=== PATIENT | male | born 1975 | race Caucasian/White ===

== ENCOUNTER → 2017-06-23 | Day surgery (SDC) | payer OTHER ==
[~2017-06-23] VITALS: Ht 188 cm; Wt 93.4 kg
[~2017-06-23] MED LIST: 0.9% Sodium Chloride 1,000 ML IV SCH; MULT-1007 PO; NAPR250T5 PO; Sodium Chloride LOK Flush 10 mL Syringe IV PRN; TURM500C7 PO; fentaNYL-PF 50 mCg/mL 2 mL Inj IVPUSH PRN
[2017-06-23 09:07] VITALS: BP 125/84; PULSE 64; RESP 16; O2SAT 99
[2017-06-23 10:03] VITALS: BP 113/75; PULSE 57; RESP 16; O2SAT 97
[2017-06-23 10:14] VITALS: BP 105/69; PULSE 72; RESP 16; O2SAT 97
[2017-06-23 10:23] VITALS: BP 121/86; PULSE 65; RESP 16; O2SAT 98
--- NOTE | 2017-06-23 13:42 | ENDO ---
[address] [address] ENDOSCOPY PROCEDURE PATIENT: NIKITA BENAVIDEZ : 1975 MR#: [id number] ADMIT: 06/23/2017 JOB ID: [id number] DATE: 06/23/2017 PROCEDURE: Colonoscopy. INDICATION: Patient with a history of colon polyps. Patient's ASA classification is one. Mallampati score was one. MEDICATIONS: Versed 7 mg, fentanyl 150 mcg. INSTRUMENT USED: PCF H 180 AL PREPARATION QUALITY: Fair. PROCEDURE DETAILS: After informed consent was obtained, the patient was brought to the GI suite, where he was placed on oxygen via nasal cannula and monitored with continuous pulse oximeter, telemetry, and blood pressure monitoring. A time-out was performed, then he was placed in the left lateral decubitus position and medications were administered for sedation. Digital rectal exam was performed which was unremarkable. The colonoscope was then inserted into the rectum and advanced under direct visualization to the cecum, which was identified by the presence of the ileocecal valve and appendiceal orifice. Once the cecum was reached, the colonoscope was withdrawn back into the rectum as the mucosa and lumen were examined. In the rectum, retroflexion was performed. Following retroflexion, the remaining air in the rectum was suctioned and the procedure was completed. FINDINGS: Normal exam from rectum to cecum. IMPRESSION: Normal colonoscopy. RECOMMENDATIONS: Repeat colonoscopy in five years. COMPLICATIONS: None. ESTIMATED BLOOD LOSS: Zero. CC: Vic Hawkins MD
== END | disposition home or self-care (01) ==
LOC: END 00:55
PROVIDERS: ATTEND Internal Medicine Gastroenterology
DX: Z12.11 Encounter for screening for malignant neoplasm of colon (principal); Z86.010 Personal history of colon polyps